=== PATIENT | female | born 1965 | race Caucasian/White ===

== ENCOUNTER 2016-03-15 07:06 | Day surgery (SDC) | payer OTHER ==
[2016-03-14 10:32] VITALS: BMI 28.0
--- NOTE | 2016-03-14 17:24 | PREOPHP ---
DATE OF ADMISSION: 03/15/2016 HISTORY: A 50-year-old female patient with intermittent airway obstruction seen in December 2015 at [facility] presenting with some airway obstruction. Examination and CT scan of t he neck was performed demonstrating some circumferential subglottic density with narrowing of the AP diameter of the airway to 6.3 mm. The patient was seen in the office with attempt to visualize the subglottis; however, it was unsuccessful. The patient is now admitted to the hospital for direct l aryngoscopy, possible bronchoscopy, possible tracheotomy. PAST MEDICAL HISTORY: ALLERGIES: NONE. MEDICAL CONDITIONS: High blood pressure. DAILY MEDICATIONS: 1. Hydrochlorothiazide. 2. Levothyroxine. PAST SURGICAL HISTORY: Carpal tunnel surgery and gallbladder surgery. CLOTTING DISORDERS: None. HABITS: Alcohol, tobacco, recreational drugs: None. FAMILY HISTORY AND REVIEW OF SYSTEMS: Negative. PHYSICAL EXAMINATION: GENERAL: Well-developed, well-nourished female patient in no acute distress. HEENT: There is no evidence of stridor or at the time of this examination. Ears and tympanic membr anes normal. Nose: Clear. Oropharynx clear. NECK: No masses or adenopathy. CHEST: Clear to P and A. HEART: Regular sinus rhythm without murmur. ABDOMEN: Soft, bowel sounds normal. No masses or megaly. EXTREMITIES: Full range of motion without deformity. NEUROLOGIC: Physiologic. PELVIC AND RECTAL: Not done. IMPRESSION: Rule out subglottic stenosis. RECOMMENDATIONS: Admit to the hospital for endoscopy. Dictated By: EJ VILLATORO/JONAH Conf#: [id number] DID#: [id number]
[~2016-03-15] VITALS: Ht 152.4 cm; Wt 66.0 kg
[2016-03-15] VITALS (12 sets, daily range): BP systolic 129–160; BP diastolic 81–97; PULSE 81–101; RESP 10–18; Ht 152.4 cm; Wt 66.0 kg
[~2016-03-15 07:06] MED LIST: AZIT250T94 PO; HYDR-762 PO; HYDR25TA6 ORAL; IBUP-1542 PO; IBUP800T25 PO; LEVO100T87 ORAL; ONDA4TAB35 PO; PRED15SO PO; SUCCINYLCHOLINE CHLORIDE 100 MG/5 ML SYG IV ONE
[2016-03-15] MEDS ORDERED: HYDROCORTISONE 100 MG INJ IV ONE (09:30)
[2016-03-15] MEDS ORDERED: COCAINE 4% 4 ML TOP ONE (11:18)
[2016-03-15] MEDS ORDERED: ALBUTEROL 0.083% (NEB) 2.5 MG/3 ML AMP ONE (11:47)
[2016-03-15] MEDS ORDERED: ACETAMINOPHEN 1000MG/100ML IV 100 ML ONE (13:04)
[2016-03-15] MEDS ORDERED: ACETAMINOPHEN 1000MG/100ML IV 100 ML IVPB ONE (13:30)
[2016-03-15] MEDS ORDERED: KETOROLAC 30 MG INJ IV STA (13:58)
--- NOTE | 2016-03-19 06:09 | OPR ---
DATE OF OPERATION: 03/15/2016 PREOPERATIVE DIAGNOSIS: Subglottic stenosis. POSTOPERATIVE DIAGNOSIS: Subglottic stenosis. PROCEDURE PERFORMED: Direct laryngoscopy. DESCRIPTION OF PROCEDURE: The patient was brought to the operating room under parenteral sedation a nd general anesthesia by mask with the patient breathing on her own. Direct laryngoscopy was karrie d out with a Haolianluoo operative laryngoscope. The vocal cords were visualized, as well as the subglotti c area, and initial examination revealed no evidence of subglottic stenosis. It was felt appropriat e at this time to continue ventilating the patient under paralysis. Following paralysis, a further laryngoscopy was performed with insertion of a Holinger laryngoscope through the vocal cords to bett er visualize the subglottis, which appeared to be clear, as were the upper 3 to 4 tracheal rings, wh ich could be well visualized. There were no lesions seen, and accordingly, it was felt the procedur e could be terminated. The patient was awakened in the operating room and returned to recovery in e xcellent condition. ESTIMATED BLOOD LOSS: Nil. COMPLICATIONS: None. Dictated By: EJ VILLATORO/JONAH Conf#: [id number] DID#: [id number]
== END 2016-03-15 15:00 | disposition home or self-care (01) ==
LOC: SDS 07:06
PROVIDERS: ATTEND Otolaryngology Otolaryngology/Facial Plastic Surgery
DX: J38.6 Stenosis of larynx (principal); E66.9 Obesity, unspecified; Z68.28 Body mass index [BMI] 28.0-28.9, adult
CPT/HCPCS: 31525; 84703; J0131; J0330; J1720; J1885; Z7512; Z7610

== ENCOUNTER 2018-06-02 13:23 | Emergency (ER) | payer OTHER ==
[~2018-06-02] VITALS: Ht 152.4 cm; Wt 63.6 kg
[~2018-06-02 13:23] MED LIST changes: -AZIT250T94 PO; +CHOL100062 PO; -HYDR-762 PO; -IBUP-1542 PO; -IBUP800T25 PO; +LEVO100T8 ORAL; -LEVO100T87 ORAL; +LORA10TA3 PO; -ONDA4TAB35 PO; -PRED15SO PO; -SUCCINYLCHOLINE CHLORIDE 100 MG/5 ML SYG IV ONE
[2018-06-02 13:41] VITALS: Ht 152.4 cm; Wt 63.6 kg
[2018-06-02] MEDS ORDERED: CEPHALEXIN 500 MG CAP PO ONE (15:30)
[2018-06-02] MEDS ORDERED: PHENAZOPYRIDINE 100 MG TAB PO ONE (15:30)
[2018-06-02] MEDS ORDERED: CEPH-443 PO (15:40)
[2018-06-02] MEDS ORDERED: PHEN-538 PO (15:40)
--- NOTE | 2018-06-02 15:41 | ERD ---
ER Documentation Chief Complaint Chief Complaint PAINFUL URINATION X 1 WEEK HPI 53-year-old female presents with worsening dysuria for last week. She has a remote history of UTI. She has fevers, vomiting, abdominal pain, flank pain. She denies chest pain or shortness of breath. Denies , vaginal dischar ge or bleeding. ROS All systems reviewed and are negative except as per history of present illness. Medications Home Meds Active Scripts Phenazopyridine Hcl* (Pyridium*) 200 Mg Tab, 200 MG PO TID PRN for URINARY PAIN, #6 TAB Prov:OSBALDO JIMENES MD 06/02/18 Cephalexin* (Keflex*) 500 Mg Capsule, 500 MG PO QID for 5 Days, CAP Prov:OSBALDO JIMENES MD 06/02/18 Reported Medications Loratadine* (Loratadine*) 10 Mg Tablet, 10 MG PO DAILY, #30 TAB 10/26/17 Cholecalciferol* (Vitamin D3*) 1,000 Unit Tablet, 1000 UNIT PO DAILY, TAB 10/26/17 Hydrochlorothiazide (Hydrochlorothiazide) 25 Mg Tablet, 25 MG ORAL DAILY, #30 06/26/15 Levothyroxine Sodium* (Levothyroxine Sodium*) 100 Mcg Tablet, 100 MCG ORAL AM, #30 06/26/15 Allergies Allergies: Coded Allergies: Sulfa (Sulfonamide Antibiotics) (Verified Allergy, Severe, 10/26/17) PMhx/Soc History of Surgery: Yes (TRACHEA SX,CARPAL TUNNEL,CHOLECYSTECTOMY,BTL) Anesthesia Reaction: No Hx Neurological Disorder: No Hx Respiratory Disorders: No Hx Cardiac Disorders: Yes (HTN,THYROID) Hx Psychiatric Problems: No Hx Miscellaneous Medical Probl: No Hx Alcohol Use: No Hx Substance Use: No Hx Tobacco Use: No Smoking Status: Never smoker FmHx Family History: No diabetes, No coronary disease, No other Physical Exam Vitals Vital Signs Date Temp Pulse Resp B/P (MAP) Pulse Ox O2 O2 Flow FiO2 Time Delivery Rate 06/02/18 98.3 83 18 /140 64 13:41 Physical Exam Const: No acute distress Head: Atraumatic Eyes: Normal Conjunctiva ENT: Normal External Ears, Nose and Mouth. Neck: Full range of motion. No meningismus. Resp: Clear to auscultation bilaterally Cardio: Regular rate and rhythm, no murmurs Abd: Soft, non tender, non distended. Normal bowel sounds Skin: No petechiae or rashes Back: No midline or flank tenderness Ext: No cyanosis, or edema Neur: Awake and alert Psych: Normal Mood and Affect Results 24 hrs Laboratory Tests Test 06/02/18 15:18 06/02/18 15:20 Bedside Urine pH (LAB) 6.0 Bedside Urine Protein (LAB) Negative Bedside Urine Glucose (UA) Negative Bedside Urine Ketones (LAB) Negative Bedside Urine Blood Trace-lysed Bedside Urine Nitrite (LAB) Negative Bedside Urine Leukocyte Esterase (L 1+ POC Beta HCG, Qualitative NEGATIVE Current Medications Medications Dose Sig/Ruth Start Time Status Last (Trade) Ordered Route PRN Stop Time Admin Dose Reason Admin Cephalexin 500 mg ONCE ONCE 06/02/18 DC (Keflex) PO 15:30 06/02/18 15:32 200 mg ONCE ONCE 06/02/18 DC Phenazopyridi PO 15:30 ne HCl 06/02/18 15:32 (Pyridium) Procedures/MDM Urine shows leukocyte esterase. HCG negative. Patient was given Keflex and Pyridium. Patient presents with signs and symptoms of uncomplicated cystitis without signs of abdominal pain, sepsis, additional concerning signs or sympt oms. The patient was stable with no new complaints during the ER course. Clinically, there is no current evidence to suggest meningitis, sepsis, acute abdomen, pneumonia, stroke, acute coronary syndrome, pulmonary embolism, aortic dissection or any other emergent condition appearing to require further evaluation or hospitalization. Patient counseled regarding my diagnostic impre ssion and care plan. Prior to discharge all questions answered. Pt agrees with treatment plan and understands strict return precautions. Pt is instructed to follow up with primary care provider within 24-48 hours. Precautionary instructions provided including instructions to return to the ER if not improving or for any worsening or changing symptoms or concerns. Departure Diagnosis: Primary Impression: UTI (urinary tract infection) Urinary tract infection type: acute cystitis Hematuria presence: without hematuria Qualified Codes: N30.00 - Acute cystitis without hematuria Condition: Stable Patient Instructions: Understanding Urinary Tract Infections (UTIs) Additional Instructions: Urine shows infection we will treat for this. Recheck for fevers, vomiting, new or worsening symptoms. OSBALDO JIMENES MD Jun 02, 2018 15:41
[2018-06-02 16:07] VITALS: BP 137/77; PULSE 74; RESP 18
== END 2018-06-02 16:08 | disposition home or self-care (01) ==
LOC: FTE 13:23
DX: N30.00 Acute cystitis without hematuria (principal); I10 Essential (primary) hypertension
CPT/HCPCS: 81003; 81025; Z7502; Z7610; 99283

== ENCOUNTER 2018-08-15 12:23 | Emergency (ER) | payer OTHER ==
[~2018-08-15] VITALS: Ht 152.4 cm; Wt 65.0 kg
[~2018-08-15 12:23] MED LIST changes: +CEPH-443 PO; +PHEN-538 PO
[2018-08-15 12:36] VITALS: Ht 152.4 cm; Wt 65.0 kg
[2018-08-15] MEDS ORDERED: KETOROLAC 60 MG INJ IM STA (12:59)
[2018-08-15] MEDS ORDERED: HARD FAT/PHENYLEPHRINE SUPP PR ONE (13:00)
--- NOTE | 2018-08-15 13:07 | ERD ---
ER Documentation Chief Complaint Chief Complaint rectal pain from hemorrhoids x 10 days. no rectal bleed complaint HPI Patient is a 53 years old female presenting to the clinic for worsening hemorrhoid x 10 days. Patient was diagnosed 1 week ago and was given Ibuprofen 600mg, Protosol 2.5%, Triamcinoline 0.5%, and Sitz Bath without improvement. Patient denies rectal bleeding and admits to high fiber diet. Patient rates her pain 8/10 and denies all other ROS. ROS All systems reviewed and are negative except as per history of present illness. Medications Home Meds Active Scripts Hydrocortisone Acetate (Anusol-Hc) 25 Mg Supp.rect, 1 SUPP IN BID PRN for HEMORROID PAIN/ITCHING, #12 SUPP.RECT Prov:DEON SEXTON PA-C 08/15/18 Phenazopyridine Hcl* (Pyridium*) 200 Mg Tab, 200 MG PO TID PRN for URINARY PAIN, #6 TAB Prov:OSBALDO JIMENES MD 06/02/18 Cephalexin* (Keflex*) 500 Mg Capsule, 500 MG PO QID for 5 Days, CAP Prov:OSBALDO JIMENES MD 06/02/18 Reported Medications Loratadine* (Loratadine*) 10 Mg Tablet, 10 MG PO DAILY, #30 TAB 10/26/17 Cholecalciferol* (Vitamin D3*) 1,000 Unit Tablet, 1000 UNIT PO DAILY, TAB 10/26/17 Hydrochlorothiazide (Hydrochlorothiazide) 25 Mg Tablet, 25 MG ORAL DAILY, #30 06/26/15 Levothyroxine Sodium* (Levothyroxine Sodium*) 100 Mcg Tablet, 100 MCG ORAL AM, #30 06/26/15 Allergies Allergies: Coded Allergies: Sulfa (Sulfonamide Antibiotics) (Verified Allergy, Severe, 08/15/18) PMhx/Soc History of Surgery: Yes (TRACHEA SX,CARPAL TUNNEL,CHOLECYSTECTOMY,BTL) Anesthesia Reaction: No Hx Neurological Disorder: No Hx Respiratory Disorders: No Hx Cardiac Disorders: Yes (HTN,THYROID) Hx Psychiatric Problems: No Hx Miscellaneous Medical Probl: No Hx Alcohol Use: No Hx Substance Use: No Hx Tobacco Use: No Smoking Status: Never smoker FmHx Family History: No diabetes, No coronary disease, No other Physical Exam Vitals Vital Signs Date Temp Pulse Resp B/P (MAP) Pulse Ox O2 O2 Flow FiO2 Time Delivery Rate 08/15/18 98.5 100 18 147/80 97 12:36 (102) Physical Exam Const: No acute distress Head: Atraumatic Eyes: Normal Conjunctiva Resp: Clear to auscultation bilaterally Cardio: Regular rate and rhythm, no murmurs Abd: Soft, non tender, non distended. Normal bowel sounds Skin: No petechiae or rashes Neur: Awake and alert Psych: Normal Mood and Affect External Rectal Exam w/ RN Aparna: Medium-Large external hemorrhoid seen with no sings of thrombosis or bleeding. No rectal tear noted. Results 24 hrs Laboratory Tests Test 08/15/18 13:14 POC Beta HCG, Qualitative NEGATIVE Current Medications Medications Dose Sig/Ruth Start Time Status Last (Trade) Ordered Route PRN Stop Time Admin Dose Reason Admin Hard Fat/ 1 supp ONCE ONCE 08/15/18 DC Phenylephrine IN 13:00 (Anusol 08/15/18 13:02 Supp) Ketorolac 60 mg ONCE STAT 08/15/18 DC 08/15/18 Tromethamine IM 12:59 13:17 (Toradol) 08/15/18 13:02 25 mg ONCE IN 08/15/18 08/15/18 Hydrocortison 13:30 13:17 e 08/15/18 20:00 (Anusol-Hc Supp) Procedures/MDM Patient was seen and evaluated for worsening hemorrhoid without complications. Anusol and Toradol Administered in ED with resolution of symptoms. Provider contacted Dr. [facility]ir [facility] outpatient clinic and was informed that patient's insurance is not accepted and it was recommended that she f/u with her PCP for referral. Patient is stable and ready for discharge. Patient will be given Anusol and instructed to f/u with PCP. Continue with sitz bath and high fiber diet. Departure Diagnosis: Primary Impression: Hemorrhoids Hemorrhoid type: unspecified Qualified Codes: K64.9 - Unspecified hemorrhoids Condition: Stable Patient Instructions: Hemorrhoids Referrals: [facility] Additional Instructions: F/U with PCP for general surgery vs GI referral. Patient advised to return to the ED immediately for new or worsening symptoms. Patient advised to follow up with primary care provider in the next 24-48 hours. Patient verbalized understanding and agrees with treatment plan and course of action. If patient has no primary care they may follow up with [facility] [address] [place] [address] or [facility] [address] [place] [address] or [facility] [address] [place] [address] DEON SEXTON PA-C Aug 15, 2018 13:06
[2018-08-15] MEDS ORDERED: HYDR25SU23 PR (13:28)
[2018-08-15] MEDS ORDERED: HYDROCORTISONE 25 MG SUPP PR SCH (13:30)
[2018-08-15 13:42] VITALS: BP 130/74; PULSE 91; RESP 18
== END 2018-08-15 13:44 | disposition home or self-care (01) ==
LOC: FTE 12:23
DX: K64.9 Unspecified hemorrhoids (principal); I10 Essential (primary) hypertension
CPT/HCPCS: 81025; 96372; J1885; Z7502; Z7610